=== PATIENT | male | born 1990 | race African-American/Black ===

== ENCOUNTER 2022-04-28 08:58 | Emergency (ER) | payer SELFPAY ==
[~2022-04-28] VITALS: Ht 193 cm; Wt 99.8 kg
[2022-04-28 09:18] VITALS: BP 127/73
--- NOTE | 2022-04-28 09:26 | NUR ---
PATIENT AMBULATED TO BED 12.
--- NOTE | 2022-04-28 09:29 | NUR ---
PT WC ASSISTED TO XRAY
--- NOTE | 2022-04-28 10:03 | NUR ---
32 MALE C/O OF LEFT HAND PAIN FOR [id number]. SWELLING NOTED LEFT HAND, PAIN LEVEL 4/10. FULL ROM WITH PAIN UPON MOVEMENT. CMS INTACT DENIES NUMBNESS OR TINGLING. DENIES ANY NEW TRAUMA OR INJURY. DENIES ANY MEDICATION PRIOR TO ARRIVAL NKA PM LEFT WRIST SURGERY 6 YEARS AGO
[2022-04-28] MEDS ORDERED: IBUP-1842 PO (10:05)
--- NOTE | 2022-04-28 10:17 | NUR ---
Patient discharged with v/s stable. Written and verbal after care instructions ABOUT HAND PAIN given and explained. Patient alert, oriented and verbalized understanding of instructions. Ambulatory with steady gait. All questions addressed prior to discharge. ID band removed. Patient advised to follow up with PMD. Rx of MOTRIN given. Patient educated on indication of medication including possible reaction and side effects. Opportunity to ask questions provided and answered.
--- NOTE | 2022-04-28 10:17 | NUR ---
The patient's care was reviewed and supervised by Kevin Ware RN.
== END 2022-04-28 10:17 | disposition home or self-care (01) ==
LOC: MED 08:58
DX: M76.42 Tibial collateral bursitis [Pellegrini-Stieda], left leg (principal)
CPT/HCPCS: 73130; 99283